=== PATIENT | male | born 1965 | race Caucasian/White ===

== ENCOUNTER 2020-06-04 16:14 | Emergency (ER) | payer OTHER ==
[~2020-06-04 16:14] MED LIST: ZOFRAN ODT 4 MG4 MG PO
== END 2020-06-04 17:35 | disposition home or self-care (01) ==
LOC: ER1 16:14
DX: S61.211A Laceration without foreign body of left index finger without damage to nail, initial encounter (principal); I10 Essential (primary) hypertension; W26.0XXA Contact with knife, initial encounter
CPT/HCPCS: 12001; 99283